=== PATIENT | male | born 1990 | race African-American/Black ===

== ENCOUNTER 2020-11-10 12:40 | Emergency (ER) | payer OTHER ==
[~2020-11-10] VITALS: Ht 180.3 cm; Wt 63.5 kg
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
[2020-11-10 15:11] VITALS: BP 111/58
== END 2020-11-10 15:11 | disposition home or self-care (01) ==
LOC: ER 12:40
DX: M54.5 Low back pain (principal); M54.2 Cervicalgia; M54.6 Pain in thoracic spine; V89.0XXA Person injured in unspecified motor-vehicle accident, nontraffic, initial encounter; Y93.19 Activity, other involving water and watercraft; Y92.89 Other specified places as the place of occurrence of the external cause; Y99.8 Other external cause status